=== PATIENT | male | born 1960 | race Caucasian/White ===

== ENCOUNTER 2023-01-12 16:07 | Emergency (ER) | payer MEDICAID ==
[~2023-01-12] VITALS: Ht 175.3 cm; Wt 104.8 kg
[2023-01-12 16:09] VITALS: BP 132/71; TEMP 98; O2SAT 98
[2023-01-12] MEDS ORDERED: BACI/NEOM/POLY B OINT PKT 1 UDPKT PACKET TP ONE (16:30)
[2023-01-12] MEDS ORDERED: TDAP [DIPH/PERTUSSIS/TET] 0.5 ML VIAL IM ONE ×2 (16:30→17:07)
[2023-01-12] MEDS ORDERED: BACI/NEOM/POLY B OINT PKT 1 UDPKT PACKET ONE (17:07)
== END 2023-01-12 20:15 ==
LOC: ER 16:09
DX: S20.419A Abrasion of unspecified back wall of thorax, initial encounter (principal); F03.90 Unspecified dementia, unspecified severity, without behavioral disturbance, psychotic disturbance, mood disturbance, and anxiety; I10 Essential (primary) hypertension; E11.9 Type 2 diabetes mellitus without complications; W01.0XXA Fall on same level from slipping, tripping and stumbling without subsequent striking against object, initial encounter; Y93.89 Activity, other specified; Y92.89 Other specified places as the place of occurrence of the external cause; Y99.8 Other external cause status
CPT/HCPCS: 70450-TC; 71045-TC; 90715

== ENCOUNTER 2023-08-16 09:12 | Emergency (ER) | payer MEDICAID, OTHER ==
[~2023-08-16] VITALS: Ht 167.6 cm; Wt 106.6 kg
[2023-08-16 09:14] VITALS: TEMP 97.5
[2023-08-16] MEDS ORDERED: LIDOCAINE 1%-EPI 1:100,000 20 ML VIAL ONE (09:35)
[2023-08-16] MEDS: LIDOCAINE 1%-EPI 1:100,000 50 ML VIAL IJ ONE (09:52)
[2023-08-16] MEDS ORDERED: DOXY100T2 PO (09:53)
[2023-08-16] MEDS ORDERED: CEPH-570 PO (09:53)
[2023-08-16] MEDS ORDERED: ACETAMINOPHEN 325 MG TABLET ONE (10:00)
[2023-08-16] MEDS: ACETAMINOPHEN 325 MG TABLET PO ONE (10:05)
[2023-08-16 11:31] VITALS: BP 134/77; O2SAT 98
== END 2023-08-16 11:32 ==
LOC: ER 09:35
DX: L02.411 Cutaneous abscess of right axilla (principal); F03.90 Unspecified dementia, unspecified severity, without behavioral disturbance, psychotic disturbance, mood disturbance, and anxiety; I10 Essential (primary) hypertension; E11.9 Type 2 diabetes mellitus without complications
CPT/HCPCS: 99283; 10060; J3490 ×2; A6403; A6407

== ENCOUNTER 2024-01-30 14:36 | Emergency (ER) | payer OTHER ==
[~2024-01-30] VITALS: Ht 172.7 cm; Wt 123.8 kg
[~2024-01-30 14:36] MED LIST: CEPH-570 PO; DOXY100T2 PO
[2024-01-30 17:42] VITALS: BP 118/77; TEMP 98; O2SAT 96
== END 2024-01-30 17:43 ==
LOC: ER 14:46
DX: G44.309 Post-traumatic headache, unspecified, not intractable (principal); F03.90 Unspecified dementia, unspecified severity, without behavioral disturbance, psychotic disturbance, mood disturbance, and anxiety; E11.9 Type 2 diabetes mellitus without complications; I10 Essential (primary) hypertension; W18.30XA Fall on same level, unspecified, initial encounter; Y93.89 Activity, other specified; Y92.89 Other specified places as the place of occurrence of the external cause; Y99.8 Other external cause status
CPT/HCPCS: 70450-TC; 72125-TC

== ENCOUNTER 2024-03-10 11:52 | Inpatient (IN) | payer OTHER, MEDICARE ==
[~2024-03-10] VITALS: Ht 175.3 cm; Wt 118.4 kg
[2024-03-10 12:21] LABS: BASOPHILS % (AUTO) 0.4 % (0.0-2.0); EOSINOPHILS # (AUTO) 0.2 K/uL (0.0-0.7); EOSINOPHILS % (AUTO) 2.5 % (0.0-6.0); HEMATOCRIT 45 % (39-51); HEMOGLOBIN 15.1 g/dL (13.5-17.5); LYMPHOCYTES # (AUTO) 1.4 K/uL (0.8-4.8); LYMPHOCYTES % (AUTO) 22.3 % (20.0-44.0); MEAN CORPUSCULAR HEMOGLOBIN 31 PG (26.0-33.0); MEAN CORPUSCULAR HGB CONC 34 g/dl (31.0-36.0); MEAN CORPUSCULAR VOLUME 91 fL (80-96); MONOCYTES # (AUTO) 0.5 K/uL (0.1-1.30); MONOCYTES % (AUTO) 8.3 % (2.0-12.0); NEUTROPHILS # (AUTO) 4.3 K/uL (1.8-8.9); NEUTROPHILS % (AUTO) 66.5 % (43.0-81.0); PLATELET COUNT (AUTO) 227 K/uL (150-450); RED BLOOD CELL COUNT(AUTO) 4.93 MIL/uL (4.5-6.0); RED CELL DISTRIBUTION WIDTH 13.2 % (11.5-15.0); WHITE BLOOD COUNT (AUTO) 6.4 K/uL (4.3-11.0)
[2024-03-10 12:29] LABS: CALCIUM, SERUM 9.4 mg/dL (8.5-10.1); CREATININE 0.8 mg/dL (0.6-1.3); POTASSIUM 4.2 mmol/L (3.5-5.1)
[2024-03-10] MEDS ORDERED: IBUP-1955 PO (12:39)
[2024-03-10] MEDS ORDERED: ACET-73 PO (12:39)
[2024-03-10] MEDS ORDERED: CYCL10TA9 PO (12:39)
[2024-03-10] MEDS ORDERED: METF-442 PO (12:39)
[2024-03-10] MEDS ORDERED: TRAZ-182 PO (12:39)
[2024-03-10] MEDS ORDERED: AMLO-213 PO (12:39)
[2024-03-10] MEDS ORDERED: IBUPROFEN 600 MG TABLET PO PRN (18:30)
[2024-03-10] MEDS: METFORMIN 500 MG TABLET PO SCH (18:30)
[2024-03-10] MEDS ORDERED: CYCLOBENZAPRINE 10 MG TABLET PO PRN (18:30)
[2024-03-10] MEDS ORDERED: METFORMIN 500 MG TABLET ONE (18:35)
[2024-03-10] MEDS ORDERED: ACETAMINOPHEN 325 MG TABLET PO PRN (20:00)
[2024-03-10] MEDS ORDERED: ONDANSETRON HCL/PF 4 MG/2 ML VIAL IVP PRN (20:00)
[2024-03-10 21:00] VITALS: BP 142/79; TEMP 97.8; O2SAT 98
[2024-03-10 22:00] VITALS: BP_SYST 135; BP_SYST 142; BP_DIAS 79; BP_DIAS 86; BP_DIAS 89; TEMP 98.4; O2SAT 98
[2024-03-10] MEDS: TRAZODONE 50 MG TABLET PO SCH (22:15)
[2024-03-10] MEDS: ENOXAPARIN SODIUM 40 MG/0.4 ML DISP.SYRIN SQ SCH (22:15)
[2024-03-11 04:00] VITALS: BP 113/88; TEMP 97.7; O2SAT 95
[2024-03-11 07:31] LABS: BASOPHILS % (AUTO) 0.5 % (0.0-2.0); EOSINOPHILS # (AUTO) 0.1 K/uL (0.0-0.7); HEMATOCRIT 39 % (39-51); HEMOGLOBIN 13.4 g/dL (13.5-17.5); LYMPHOCYTES # (AUTO) 1.6 K/uL (0.8-4.8); LYMPHOCYTES % (AUTO) 33.7 % (20.0-44.0); MEAN CORPUSCULAR HEMOGLOBIN 31 PG (26.0-33.0); MEAN CORPUSCULAR HGB CONC 34 g/dl (31.0-36.0); MEAN CORPUSCULAR VOLUME 91 fL (80-96); MONOCYTES # (AUTO) 0.5 K/uL (0.1-1.30); MONOCYTES % (AUTO) 9.6 % (2.0-12.0); NEUTROPHILS # (AUTO) 2.6 K/uL (1.8-8.9); NEUTROPHILS % (AUTO) 53.2 % (43.0-81.0); PLATELET COUNT (AUTO) 195 K/uL (150-450); RED BLOOD CELL COUNT(AUTO) 4.34 MIL/uL (4.5-6.0); RED CELL DISTRIBUTION WIDTH 13.1 % (11.5-15.0); WHITE BLOOD COUNT (AUTO) 4.8 K/uL (4.3-11.0)
[2024-03-11 07:53] LABS: CALCIUM, SERUM 8.7 mg/dL (8.5-10.1); CREATININE 0.6 mg/dL (0.6-1.3); PHOSPHORUS 3.7 mg/dL (2.5-4.9); POTASSIUM 3.8 mmol/L (3.5-5.1)
[2024-03-11 08:00] VITALS: BP 120/64; TEMP 98.3; O2SAT 100
[2024-03-11] MEDS: AMLODIPINE BESYLATE 10 MG TABLET PO SCH (08:56)
[2024-03-11 16:00] VITALS: BP 132/81; TEMP 98.7; O2SAT 97
[2024-03-11 20:00] VITALS: BP 132/84; TEMP 97.9; O2SAT 94
[2024-03-12] VITALS: BP 138/99; TEMP 97.8; O2SAT 94
[2024-03-12 04:00] VITALS: BP_SYST 113; BP_SYST 117; BP_SYST 126; BP_DIAS 76; BP_DIAS 87; BP_DIAS 88; TEMP 97.8; O2SAT 96
[2024-03-12 08:30] VITALS: BP 117/97; TEMP 97.7; O2SAT 98
[2024-03-12] MEDS: MAGNESIUM HYDROXIDE 30 ML UDC PO PRN (09:47)
[2024-03-12 16:00] VITALS: BP 122/76; TEMP 97.9; O2SAT 96
== END 2024-03-12 19:05 | DRG 58 ==
LOC: ER 12:08 → MED 21:12 → TELE 03-11 02:00 → MED 03-12 11:23
PROVIDERS: ADMIT Nurse Practitioner Acute Care; ATTEND Nurse Practitioner Acute Care
DX: R26.89 Other abnormalities of gait and mobility (principal); D68.59 Other primary thrombophilia; F03.90 Unspecified dementia, unspecified severity, without behavioral disturbance, psychotic disturbance, mood disturbance, and anxiety; E11.9 Type 2 diabetes mellitus without complications; E66.9 Obesity, unspecified; R29.6 Repeated falls; W05.0XXA Fall from non-moving wheelchair, initial encounter; S00.81XA Abrasion of other part of head, initial encounter; Y92.099 Unspecified place in other non-institutional residence as the place of occurrence of the external cause; I10 Essential (primary) hypertension; Z79.84 Long term (current) use of oral hypoglycemic drugs; Z79.899 Other long term (current) drug therapy; Z68.38 Body mass index [BMI] 38.0-38.9, adult
CPT/HCPCS: 36415; 70450-TC; 80048-TC; 80061-TC; 83735-TC; 84100-TC; 84439-TC; 84443-TC; 84484-TC; 85025-TC; 93307-TC; 93880-TC; 97116-TC; 97530-TC; G0378; J1650

== ENCOUNTER 2024-04-27 13:12 | Inpatient (IN) | payer MEDICARE, OTHER ==
[~2024-04-27] VITALS: Ht 175.3 cm; Wt 101.2 kg
[~2024-04-27 13:12] MED LIST changes: +ACET-73 PO; +AMLO-213 PO; -CEPH-570 PO; +CYCL10TA9 PO; -DOXY100T2 PO; +IBUP-1955 PO; +METF-442 PO; +TRAZ-182 PO
[2024-04-27] MEDS ORDERED: PIPERACI/TAZO 3.375GM/D5W 50ML PB IV ONE ×2 (14:03→21:30)
[2024-04-27] MEDS: IV NS 0.9% 1,000 ML BAG IV ONE (14:20)
[2024-04-27] MEDS: PIPERACILLIN /TAZOBACTAM 3.375 G in IV D5W 50 ML IV ONE (14:20)
[2024-04-27 14:31] LABS: LACTIC ACID 2.2 mmol/L (0.4-2.0)
[2024-04-27 14:35] LABS: CALCIUM, SERUM 9.1 mg/dL (8.5-10.1); CARBON DIOXIDE 29 mmol/L (21-32); CHLORIDE 104 mmol/L (98-107); GLUCOSE 137 mg/dL (74-106); POTASSIUM 4.2 mmol/L (3.5-5.1); SODIUM SERUM 141 mmol/L (136-145); UREA NITROGEN, BLOOD 11 mg/dL (7-18)
[2024-04-27 14:39] LABS: ALANINE AMINOTRANSFERASE 18 U/L (12-78); ALBUMIN 3.8 g/dL (3.4-5.0); ALKALINE PHOSPHATASE 189 U/L (46-116); ASPARTATE AMINOTRANSFERASE 13 U/L (15-37); BILIRUBIN,DIRECT 0.1 mg/dL (0.0-0.2); BILIRUBIN,TOTAL 0.3 mg/dL (0.2-1.0); TOTAL PROTEIN, SERUM 7.8 g/dL (6.4-8.2)
[2024-04-27 14:41] LABS: PARTIAL THROMBOPLASTIN TIME 29.8 SEC (24.3-34.3); PROTHROMBIN TIME 10.6 SECS (9.2-11.1)
[2024-04-27] MEDS ORDERED: IV NS 0.9% 250 ML IV ONE (14:44)
[2024-04-27] MEDS ORDERED: IOHEXOL-300 100 ML VIAL IV ONE (14:44)
[2024-04-27 16:03] LABS: BASOPHILS % (AUTO) 0.3 % (0.0-2.0); EOSINOPHILS # (AUTO) 0.1 K/uL (0.0-0.7); EOSINOPHILS % (AUTO) 1.1 % (0.0-6.0); HEMATOCRIT 39 % (39-51); HEMOGLOBIN 13.5 g/dL (13.5-17.5); LYMPHOCYTES # (AUTO) 1.7 K/uL (0.8-4.8); LYMPHOCYTES % (AUTO) 19.2 % (20.0-44.0); MEAN CORPUSCULAR HEMOGLOBIN 31 PG (26.0-33.0); MEAN CORPUSCULAR HGB CONC 34 g/dl (31.0-36.0); MEAN CORPUSCULAR VOLUME 89 fL (80-96); MONOCYTES # (AUTO) 0.8 K/uL (0.1-1.30); MONOCYTES % (AUTO) 8.8 % (2.0-12.0); NEUTROPHILS # (AUTO) 6.2 K/uL (1.8-8.9); NEUTROPHILS % (AUTO) 70.6 % (43.0-81.0); PLATELET COUNT (AUTO) 197 K/uL (150-450); RED BLOOD CELL COUNT(AUTO) 4.43 MIL/uL (4.5-6.0); RED CELL DISTRIBUTION WIDTH 13.4 % (11.5-15.0); WHITE BLOOD COUNT (AUTO) 8.8 K/uL (4.3-11.0)
[2024-04-27] MEDS ORDERED: LIDO1ADH82 TD (16:42)
[2024-04-27] MEDS ORDERED: LIDOCAINE 1% INJ 50 ML MDV IJ ONE (17:17)
[2024-04-27] MEDS: LIDOCAINE 1% INJ 50 ML MDV IJ ONE (17:33)
[2024-04-27] MEDS ORDERED: MAG HYDROX/AL HYDROX/SIMETH 30 ML UDC PO PRN (18:00)
[2024-04-27] MEDS ORDERED: MAGNESIUM HYDROXIDE 30 ML UDC PO PRN (18:00)
[2024-04-27] MEDS ORDERED: Z GUARD REMEDY 4 OZ OINT TP PRN (18:00)
[2024-04-27] MEDS ORDERED: ONDANSETRON HCL/PF 4 MG/2 ML VIAL IVP PRN (18:00)
[2024-04-27] MEDS ORDERED: HYDROCODONE/APAP 5/325MG TABLET PO PRN (18:00)
[2024-04-27] MEDS ORDERED: ACETAMINOPHEN 325 MG TABLET PO PRN (18:00)
[2024-04-27] MEDS ORDERED: PIPERACILLIN /TAZOBACTAM 4.5 G in IV D5W 50 ML IV SCH (18:00)
[2024-04-27] MEDS ORDERED: CYCLOBENZAPRINE 10 MG TABLET PO PRN (18:30)
[2024-04-27 20:00] VITALS: BP 137/86; TEMP 98.1; O2SAT 97
[2024-04-27] MEDS: ZOSYN IVPB 3.375 G in IV D5W 50ml IV SCH (21:33)
[2024-04-27] MEDS: TRAZODONE 50 MG TABLET PO SCH (21:55)
[2024-04-27 22:00] VITALS: BP 137/86; TEMP 98.1; O2SAT 97
[2024-04-27] MEDS: IV NS 0.9% 1,000 ML IV PRN (22:01)
[2024-04-27] MEDS ORDERED: LIDOCAINE 5% (PATCH) 1 EA PATCH TP PRN (23:00)
[2024-04-28] MEDS ORDERED: PIPERACI/TAZO 3.375GM/D5W 50ML PB IV ONE (02:54)
[2024-04-28 06:47] LABS: BASOPHILS % (AUTO) 0.2 % (0.0-2.0); EOSINOPHILS # (AUTO) 0.1 K/uL (0.0-0.7); EOSINOPHILS % (AUTO) 2.5 % (0.0-6.0); HEMATOCRIT 39 % (39-51); LYMPHOCYTES # (AUTO) 1.9 K/uL (0.8-4.8); LYMPHOCYTES % (AUTO) 34.2 % (20.0-44.0); MEAN CORPUSCULAR HEMOGLOBIN 30 PG (26.0-33.0); MEAN CORPUSCULAR HGB CONC 34 g/dl (31.0-36.0); MEAN CORPUSCULAR VOLUME 90 fL (80-96); MONOCYTES # (AUTO) 0.6 K/uL (0.1-1.30); MONOCYTES % (AUTO) 11.2 % (2.0-12.0); NEUTROPHILS # (AUTO) 2.9 K/uL (1.8-8.9); NEUTROPHILS % (AUTO) 51.9 % (43.0-81.0); PLATELET COUNT (AUTO) 190 K/uL (150-450); RED BLOOD CELL COUNT(AUTO) 4.31 MIL/uL (4.5-6.0); RED CELL DISTRIBUTION WIDTH 13.3 % (11.5-15.0); WHITE BLOOD COUNT (AUTO) 5.6 K/uL (4.3-11.0)
[2024-04-28 07:09] LABS: CALCIUM, SERUM 8.8 mg/dL (8.5-10.1); CREATININE 0.6 mg/dL (0.6-1.3); MAGNESIUM 2.2 mg/dL (1.8-2.4); PHOSPHORUS 3.9 mg/dL (2.5-4.9); POTASSIUM 3.9 mmol/L (3.5-5.1)
[2024-04-28 07:30] VITALS: BP 109/89; TEMP 98.2; O2SAT 96
[2024-04-28] MEDS: AMLODIPINE BESYLATE 10 MG TABLET PO SCH (08:02)
[2024-04-28 20:00] VITALS: BP 119/72; TEMP 98; O2SAT 94
[2024-04-29 08:00] VITALS: BP 140/81; TEMP 97.7; O2SAT 96
[2024-04-29 16:00] VITALS: BP 128/81; TEMP 97.7; O2SAT 96
[2024-04-29] MEDS ORDERED: DEXTROSE 50%-WATER 50 ML DISP.SYRIN IV PRN (16:30)
[2024-04-29] MEDS: BLOOD SUGAR DIAGNOSTIC 1 EACH STRIP IN SCH (17:26)
[2024-04-29] MEDS: INSULIN REGULAR, HUMAN 100 UNIT/ML 3 ML VIAL SQ PRN (17:27)
[2024-04-29 20:00] VITALS: BP 145/86; TEMP 98.4; O2SAT 96
[2024-04-30 07:00] VITALS: BP 137/80; TEMP 97.7; O2SAT 97
[2024-04-30 08:20] VITALS: BP 137/80
[2024-04-30] MEDS ORDERED: AMOX-430 PO (10:21)
[2024-04-30] MEDS ORDERED: PIPERACILLIN /TAZOBACTAM 3.375 G in IV D5W 100 ML IV SCH (15:00)
== END 2024-04-30 15:45 | disposition home health service (06) | DRG 158 ==
LOC: ER 13:16 → MED 20:33
PROVIDERS: ADMIT Internal Medicine; ATTEND Internal Medicine
PROC: 0C96XZZ Drainage of Lower Gingiva, External Approach (ICD-10-PCS; principal; 2024-04-27)
DX: K04.7 Periapical abscess without sinus (principal); R47.01 Aphasia; Z86.73 Personal history of transient ischemic attack (TIA), and cerebral infarction without residual deficits; I10 Essential (primary) hypertension; E11.9 Type 2 diabetes mellitus without complications; Z79.84 Long term (current) use of oral hypoglycemic drugs; F03.90 Unspecified dementia, unspecified severity, without behavioral disturbance, psychotic disturbance, mood disturbance, and anxiety; Z79.899 Other long term (current) drug therapy
CPT/HCPCS: 36415; 70487-TC; 80048-TC; 80076-TC; 82962-TC; 83605-TC; 83735-TC; 84100-TC; 85025-TC; 85730-TC; 87040-TC; 87081-TC; A4223; G0378; J1815; J2543; J3490; J7030; J7050; J7060; Q9967

== ENCOUNTER 2025-03-01 19:04 | Inpatient (IN) | payer MEDICARE, OTHER ==
[~2025-03-01] VITALS: Ht 175.3 cm; Wt 99.4 kg
[~2025-03-01 19:04] MED LIST changes: +AMOX-430 PO; +LIDO1ADH82 TD
[2025-03-01] MEDS ORDERED: PIPERACI/TAZO 3.375GM/D5W 50ML PB IV ONE (19:40)
[2025-03-01] MEDS: IV NS 0.9% 1,000 ML BAG IV ONE (19:44)
[2025-03-01] MEDS: PIPERACILLIN /TAZOBACTAM 3.375 G in IV D5W 50 ML IV ONE (19:45)
[2025-03-01 20:01] LABS: CALCIUM, SERUM 9.3 mg/dL (8.5-10.1); CREATININE 0.8 mg/dL (0.6-1.3); PLATELET COUNT (AUTO) 241 K/uL (150-450); RED BLOOD CELL COUNT(AUTO) 5.20 MIL/uL (4.5-6.0); RED CELL DISTRIBUTION WIDTH 13.1 % (11.5-15.0); SODIUM SERUM 142.0 mmol/L (136-145); UREA NITROGEN, BLOOD 16.0 mg/dL (7-18); WHITE BLOOD COUNT (AUTO) 12.5 K/uL (4.3-11.0)
[2025-03-01 20:09] LABS: LACTIC ACID 1.8 mmol/L (0.4-2.0)
[2025-03-01 20:13] LABS: APPEARANCE,URINE CLEAR (CLEAR); BLOOD, URINE TRACE-INTA Ery/uL (NEGATIVE); LEUKOCYTE ESTERASE ,URINE NEGATIVE (NEGATIVE); NITRITE, URINE NEGATIVE (NEGATIVE); UGLUCOSE NEGATIVE (NEGATIVE)
[2025-03-01 20:17] LABS: ASPARTATE AMINOTRANSFERASE 12.0 U/L (15-37); TOTAL PROTEIN, SERUM 8.8 g/dL (6.4-8.2)
[2025-03-01 20:36] LABS: ADD URINE CULTURE YES
[2025-03-01] MEDS ORDERED: IOHEXOL-300 100 ML VIAL IV ONE (20:46)
[2025-03-01 20:48] LABS: INR 1.05 (0.91-1.10)
[2025-03-01] MEDS ORDERED: dexaMETHasone SOD PHOSPHATE 1 ML ONE (21:02)
[2025-03-01] MEDS: dexaMETHasone SOD PHOSPHATE 10 MG/ML VIAL IV ONE (21:35)
[2025-03-01 22:53] VITALS: BP 150/89; TEMP 98.2; O2SAT 96
[2025-03-01 23:00] VITALS: BP 150/89; TEMP 98.2; O2SAT 96
[2025-03-01] MEDS ORDERED: MAGNESIUM HYDROXIDE 30 ML UDC PO PRN (23:00)
[2025-03-01] MEDS ORDERED: HYDROCODONE/APAP 5/325MG TABLET PO PRN (23:00)
[2025-03-01] MEDS ORDERED: ACETAMINOPHEN 325 MG TABLET PO PRN (23:00)
[2025-03-01] MEDS ORDERED: Z GUARD REMEDY 4 OZ OINT TP PRN (23:00)
[2025-03-01] MEDS ORDERED: MAG HYDROX/AL HYDROX/SIMETH 30 ML UDC PO PRN (23:00)
[2025-03-01] MEDS ORDERED: ONDANSETRON HCL/PF 4 MG/2 ML VIAL IVP PRN (23:00)
[2025-03-01] MEDS ORDERED: DEXTROSE 50%-WATER 50 ML DISP.SYRIN IV PRN (23:00)
[2025-03-02] MEDS ORDERED: PIPERACILLIN /TAZOBACTAM 3.375 G in IV D5W 50 ML IV SCH
[2025-03-02] MEDS ORDERED: PIPERACI/TAZO 3.375GM/D5W 50ML PB IV ONE (03:26)
[2025-03-02] MEDS: ZOSYN IVPB 3.375 G in IV D5W 50ml IV ONE (04:11)
[2025-03-02] MEDS: INSULIN REGULAR, HUMAN 100 UNIT/ML 3 ML VIAL SQ PRN (06:39)
[2025-03-02] MEDS: BLOOD SUGAR DIAGNOSTIC 1 EACH STRIP IN SCH (06:57)
[2025-03-02 08:00] VITALS: BP 144/81; TEMP 98.5; O2SAT 95
[2025-03-02] MEDS: PANTOPRAZOLE 40 MG TABLET.DR PO SCH (08:06)
[2025-03-02 08:12] LABS: PLATELET COUNT (AUTO) 203 K/uL (150-450); RED BLOOD CELL COUNT(AUTO) 4.49 MIL/uL (4.5-6.0); RED CELL DISTRIBUTION WIDTH 13.3 % (11.5-15.0); WHITE BLOOD COUNT (AUTO) 7.6 K/uL (4.3-11.0)
[2025-03-02 08:23] LABS: CALCIUM, SERUM 8.5 mg/dL (8.5-10.1); CREATININE 0.7 mg/dL (0.6-1.3); PHOSPHORUS 3.0 mg/dL (2.5-4.9); SODIUM SERUM 141.0 mmol/L (136-145); UREA NITROGEN, BLOOD 12.0 mg/dL (7-18)
[2025-03-02] MEDS: PIPERACILLIN /TAZOBACTAM 3.375 G in IV D5W 100 ML IV SCH (09:48)
[2025-03-02] MEDS ORDERED: DOSING PER PHARMACY-VANCOMYCIN IV XX PRN (11:00)
[2025-03-02] MEDS: VANCOMYCIN 1 GM in IV D5W 250ml IV ONE (12:46)
[2025-03-02] MEDS: VANCOMYCIN HCL 1.25 GM in IV D5W 250 ML IV ONE (13:53)
[2025-03-02 16:00] VITALS: BP 120/68; TEMP 98.1; O2SAT 96
[2025-03-02 20:00] VITALS: BP 130/75; TEMP 97.7; O2SAT 95
[2025-03-02] MEDS: VANCOMYCIN 1 GM in IV D5W 250ml IV SCH (21:26)
[2025-03-03 06:37] LABS: PLATELET COUNT (AUTO) 188 K/uL (150-450); RED BLOOD CELL COUNT(AUTO) 4.33 MIL/uL (4.5-6.0); RED CELL DISTRIBUTION WIDTH 13.4 % (11.5-15.0); WHITE BLOOD COUNT (AUTO) 10.2 K/uL (4.3-11.0)
[2025-03-03 07:07] LABS: CALCIUM, SERUM 8.4 mg/dL (8.5-10.1); CREATININE 0.6 mg/dL (0.6-1.3); SODIUM SERUM 142.0 mmol/L (136-145); UREA NITROGEN, BLOOD 8.0 mg/dL (7-18)
[2025-03-03 08:00] VITALS: BP 123/83; TEMP 98.1; O2SAT 94
[2025-03-03 16:00] VITALS: BP 147/86; TEMP 98.1; O2SAT 95
[2025-03-03 20:00] VITALS: BP 133/80; TEMP 98.2; O2SAT 97
[2025-03-03] MEDS ORDERED: VANCOMYCIN 750 MG in IV D5W 250 ML IV SCH (21:00)
[2025-03-04 06:17] LABS: PLATELET COUNT (AUTO) 218 K/uL (150-450); RED BLOOD CELL COUNT(AUTO) 4.76 MIL/uL (4.5-6.0); RED CELL DISTRIBUTION WIDTH 13.5 % (11.5-15.0); WHITE BLOOD COUNT (AUTO) 7.7 K/uL (4.3-11.0)
[2025-03-04 06:47] LABS: CALCIUM, SERUM 8.7 mg/dL (8.5-10.1); CREATININE 0.6 mg/dL (0.6-1.3); SODIUM SERUM 143.0 mmol/L (136-145); UREA NITROGEN, BLOOD 8.0 mg/dL (7-18)
[2025-03-04] MEDS: PIPERACILLIN /TAZOBACTAM 3.375 G in IV D5W 50 ML IV SCH (07:44)
[2025-03-04 08:00] VITALS: BP 151/90; TEMP 98; O2SAT 94
[2025-03-04] MEDS ORDERED: ALTEPLASE CATHFLO 2 MG/VIAL XX ONE (14:30)
== END 2025-03-04 15:02 | DRG 872 ==
LOC: ER 19:14 → MED 20:52
PROVIDERS: ADMIT Nurse Practitioner Acute Care; ATTEND Internal Medicine
DX: A41.9 Sepsis, unspecified organism (principal); G93.49 Other encephalopathy; D68.59 Other primary thrombophilia; K12.2 Cellulitis and abscess of mouth; E11.9 Type 2 diabetes mellitus without complications; E66.9 Obesity, unspecified; N39.0 Urinary tract infection, site not specified; K04.7 Periapical abscess without sinus; F01.50 Vascular dementia, unspecified severity, without behavioral disturbance, psychotic disturbance, mood disturbance, and anxiety; I10 Essential (primary) hypertension; Z79.84 Long term (current) use of oral hypoglycemic drugs; Z86.73 Personal history of transient ischemic attack (TIA), and cerebral infarction without residual deficits; R59.0 Localized enlarged lymph nodes; Z79.899 Other long term (current) drug therapy; Z74.09 Other reduced mobility; K02.9 Dental caries, unspecified; M27.2 Inflammatory conditions of jaws; Z68.32 Body mass index [BMI] 32.0-32.9, adult; Z87.828 Personal history of other (healed) physical injury and trauma
CPT/HCPCS: 36415; 70491-TC; 71045-TC; 80048-TC; 80076-TC; 80202-TC; 81001; 82962-TC; 83605-TC; 83735-TC; 84100-TC; 85025-TC; 85730-TC; 87040-TC; 87081-TC; 87086-TC; 92526; 92611; 93307-TC; A4223; G0378; J1100; J1815; J2543; J3373; J3374; J7030; J7040; J7050; J7060; Q9967